=== PATIENT | female | born 1970 | race African-American/Black ===

== ENCOUNTER 2016-12-10 12:40 | Outpatient (CLI) | payer MEDICARE ==
[2016-12-10 13:29] LABS: Anion Gap 11 mmol/L (10-20); BUN (Urea Nitrogen) 12 mg/dL (7.0-18.7); Calc. Creatinine Clearance 0 mL/min (70-130); Calcium 9.5 mg/dL (7.8-10.44); Carbon Dioxide 28 mmol/L (22-29); Chloride 104 mmol/L (98-107); Estimated GFR-MDRD Greater than 90
--- NOTE | 2016-12-10 17:26 | RAD ---
IVP WITHOUT TOMOGRAMS: 12/10/16 HISTORY: Kidney stones. FINDINGS: The supplier diversity director film demonstrates no suspicious calcifications. There is fecal material in the colon. Foll owing the uncomplicated IV administration of contrast there is prompt bilaterally symmetric nephrogr ams with normal excretion into the pelvicalyceal systems, ureters and the urinary bladder. No hydrou reteronephrosis is seen. The distal right ureter is not visualized during the excretion phase. The u rinary bladder is grossly unremarkable. A large amount of postvoid residual was present on the postv oid film. IMPRESSION: 1. No evidence of high grade obstruction. 2. Large amount of postvoid residual in the urinary bladder. POS: [facility]
== END 2016-12-10 12:41 | disposition home or self-care (01) ==
LOC: RAD 12:40
PROVIDERS: ATTEND Urology
DX: N20.0 Calculus of kidney (principal); N32.89 Other specified disorders of bladder
CPT/HCPCS: 36415; 74410; 80048

== ENCOUNTER 2017-02-10 13:24 | Outpatient (CLI) | payer MEDICARE ==
--- NOTE | 2017-02-10 14:23 | RAD ---
KUB: History: Calculi. FINDINGS/IMPRESSION: Comparison is made with IVP of 12-10-16. No suspicious calcifications are seen. The calcific density in the left hemiabdomen at L3-4 is again seen and is found to be separate from the left ureter on the IVP. Degenerative changes of the spine. POS: [facility]
== END 2017-02-10 13:25 | disposition home or self-care (01) ==
LOC: RAD 13:24
PROVIDERS: ATTEND Urology
DX: N20.0 Calculus of kidney (principal); M47.9 Spondylosis, unspecified
CPT/HCPCS: 74000

== ENCOUNTER 2017-02-25 07:56 | Outpatient (CLI) | payer MEDICARE ==
--- NOTE | 2017-02-25 10:16 | ULT ---
BILATERAL RENAL ULTRASOUND: Date: 02/25/17 PROVIDED CLINICAL HISTORY: Ureteral calculi. FINDINGS: Right kidney measures about 10.0 x 4.3 x 4.0 cm and demonstrates no evidence for hydronephrosis, sono graphically apparent calculus, or mass. Left kidney measures about 9.2 x 4.2 x 4.0 cm and demonstrates no evidence for hydronephrosis, sonogr aphically apparent calculus, or mass. The urinary bladder appears sonographically unremarkable. There is negligible post-void residual. IMPRESSION: No evidence for hydronephrosis. POS: [facility]
--- NOTE | 2017-02-25 10:26 | RAD ---
KUB: Date: 02-25-17 Provided Clinical History: Ureteral calculi. FINDINGS: The abdominal bowel gas pattern is nonspecific. Calcifications overlying the pelvis are stable and li olman vascular in nature. No definite radiographically apparent urinary tract calculi. IMPRESSION: As above. POS: [facility]
== END 2017-02-25 07:57 | disposition home or self-care (01) ==
LOC: ULT 07:56
PROVIDERS: ATTEND Urology
DX: N20.1 Calculus of ureter (principal)
CPT/HCPCS: 36415; 74018; 76770; 80048; 81001; 87086

== ENCOUNTER 2019-10-12 07:41 | Outpatient (CLI) | payer MEDICARE, OTHER ==
[2019-10-12 15:01] LABS: #Basophils 0.2 thou/uL (0.0-0.2); #Eosinphils 0.2 thou/uL (0.0-0.7); #Lymphocytes 3.7 thou/uL (1.20-3.40); #Monocytes 0.6 thou/uL (0.11-0.59); #Neutrophils 4.5 thou/uL (1.40-6.50); %Basophils 1.7 % (0.0-1.0); %Eosinophils 1.9 % (0.0-10.0); %Lymphocytes 40.9 % (21.0-51.0); %Monocytes 6.3 % (0.0-10.0); %Neutrophils 49.2 % (42.0-75.0); MDiff Complete? YES; Macrocytosis SLIGHT = 6-15 cells (100X) (0-5/hpf); Mean Corpuscular HGB CONC 32.8 g/dL (32.0-36.0); Mean Corpuscular Hemoglobin 35.3 pg (27.0-31.0); Mean Platelet Volume 9.1 fL (7.4-10.4); Platelet Count 361 thou/uL (130-400); Platelet Morphology Comment Appears Adequate; Polychromasia SLIGHT = 2-3 cells (100X) (0-2/hpf); RBC Distribution Width 14.2 % (11.5-14.5); Red Blood Cell (RBC) Count 4.25 mill/uL (4.20-5.40); Target Cells SLIGHT = 2-5 cells (100X) (0-1/hpf); White Blood Cell (WBC) Count 9.1 thou/uL (4.8-10.8)
[2019-10-13 13:42] LABS: SARS-CoV-2 MS2 Positive; SARS-CoV-2 N Gene Negative; SARS-CoV-2 S Gene Negative; SARS-CoV-2 by NAA Not Detected (NotDetected); SARS-CoV-2 orf1ab Negative
== END 2019-10-12 07:42 | disposition home or self-care (01) ==
LOC: LABBT 07:41
PROVIDERS: ATTEND Orthopaedic Surgery Hand Surgery
DX: Z01.812 Encounter for preprocedural laboratory examination (principal); Z20.828 Contact with and (suspected) exposure to other viral communicable diseases; S52.502A Unspecified fracture of the lower end of left radius, initial encounter for closed fracture; S63.8X2A Sprain of other part of left wrist and hand, initial encounter
CPT/HCPCS: 85025; U0003; 87635

== ENCOUNTER 2019-10-16 12:01 | Observation (INO) | payer MEDICARE ==
[2019-10-12 09:13] VITALS: BMI 41.6
[~2019-10-16 12:01] MED LIST: Bupivacaine HCl 0.5%/Epinephrine 1:200,000/PF 30 ml Vial ONE; Lidocaine 1% PF 5 ML VIAL ONE; Ondansetron PF 4 MG/2 ML Vial ONE; PROPOFOL 200 MG/20 ML VIAL ONE
[2019-10-16] MEDS ORDERED: Fentanyl 100 MCG/2 ML VIAL ONE ×2 (14:16→15:38)
[2019-10-16] MEDS ORDERED: Midazolam HCl 2 mg/2 ml Vial ONE (14:16)
[2019-10-16] MEDS ORDERED: Bupivacaine PF 0.5% 30 ML VIAL ONE (15:47)
[2019-10-16] MEDS ORDERED: Bacitracin Zinc Ointment 30 gm TUBE ONE (15:47)
[2019-10-16] MEDS ORDERED: Betamet Acet/Betamet Na Ph 30 MG/5 ML VIAL ONE (15:47)
[2019-10-16] MEDS ORDERED: PROPOFOL 20 ML ONE (16:25)
--- NOTE | 2019-10-16 20:07 | RAD ---
INTRAOPERATIVE FLUOROSCOPY: History: Left wrist ORIF FINDINGS: Intraoperative fluoroscopic views demonstrate internal fixation of the distal radius, proximal carpal row. IMPRESSION: Intraoperative fluoroscopy as above. POS: [facility]
[2019-10-16] MEDS ORDERED: Promethazine HCl 25 MG/ML VIAL IM PRN (21:24)
[2019-10-16] MEDS ORDERED: Morphine 4 MG/ML VIAL SLOW IVP PRN (21:24)
[2019-10-16] MEDS ORDERED: Ondansetron PF 4 MG/2 ML Vial IVP PRN (21:24)
[2019-10-16] MEDS ORDERED: Acetaminophen 325 MG TAB PO PRN (21:24)
[2019-10-16] MEDS ORDERED: traMADol HCl 50 MG TAB PO PRN (21:24)
[2019-10-16] MEDS ORDERED: Meperidine HCl/PF 25 MG/ML VIAL IM PRN (21:31)
[2019-10-16] MEDS ORDERED: TETANUS AND DIPHTHERIA TOX/PF 0.5 ML DISP.SYRIN IM SCH (22:00)
[2019-10-16] MEDS: HYDROcodone/Acetaminophen 5/325 mg Tablet PO PRN (23:01)
[2019-10-17] MEDS: Ketorolac Tromethamine 30 MG/ML VIAL IVP SCH ×3 (00:18→11:55)
[2019-10-17] MEDS: Sodium Chloride 0.9% 1,000 ML IV SCH ×2 (00:19→10:24)
[2019-10-17] MEDS: Vancomycin HCl 1.75 GM in Sodium Chloride 0.9% 500 ML IVPB SCH ×2 (03:03→14:39)
[2019-10-17] MEDS: HYDROcodone/Acetaminophen 5/325 mg Tablet PO PRN ×2 (03:53→08:30)
--- NOTE | 2019-10-17 08:11 | OP ---
DATE OF PROCEDURE: 10/16/2019 PREOPERATIVE DIAGNOSES: 1. Left distal radius fracture, primarily 3 part styloid fracture. 2. Volar scapholunate ligament separation with intact central membranous and dorsal scapholunate. FINDINGS: A 3-point styloid fracture with a dorsal avulsion fracture, small volar avulsion fracture in the central 2/3 which was widely separate almost 4.5 mm at the articular surface with malrotation. PROCEDURES PERFORMED: 1. Open reduction and internal fixation distal radius fracture, left, 3 part styloid. 2. Partial volar scapholunate interosseous membrane tear pinning scaphoid to lunate, open, via arthrotomy. TOURNIQUET TIME: 120 minutes at 250 mmHg. ANESTHESIA: Block 24 hour with general endotracheal technique. ESTIMATED BLOOD LOSS: 20 mL. DESCRIPTION OF PROCEDURE: After successful general endotracheal anesthesia, the limb was prepped and draped. Initially, we prepped and draped the area, brought the C-arm to the field and attempted closed reduction with pinning only, this failed. We then tried a limited open reduction and internal fixation, primarily entering the first dorsal compartment, visualizing the superficial radial nerve branch, protected it and entering the space between the extensor pollicis brevis and abductor pollicis longus to place multiple K-wires and then after performing a reduction and placing one screw noticed that we did not reduce the displacement from 4 mm to anatomical, so we then removed this screw, removed the K-wires and began arthrotomy. Arthrotomy was made centered over Maureen's tubercle and this time was slightly more ulnar to space between the first dorsal compartment incision and this incision. This was carried through skin and subcutaneous tissue and immediately we found the extensor pollicis longus, and then spared it into the interval between the third and fourth dorsal compartments opening both. Then, we visualized the wrist joint with self-retaining retractors and then made a box shaped cut down to the scapholunate ligament. We first visualized the scapholunate ligament and saw that it was not displaced, although the interval was approximately 3 mm wide. We then completely palmar flexed the wrist to 7 degrees and saw the entire central membranous portion and the dorsal scapholunate ligament was intact, so we did not have to do a repair. We decided instead to reduce this and then pin the joint. The pinning took place through the distal end of the first dorsal compartment the 2 extensor tendons from each other, placing the wire between them and then at the same time making the wire well away from the superficial radial nerve and its branches. We did this after, however, we performed an open reduction with initially a 3 K-wire fixation, 1 from palmar ridge to central, 1 from central to dorsal, and 1 from dorsal slightly palmar. Then we placed one in the very distal end of the fracture, the fracture propagated approximately 15 mm down the shaft. Once we had done this, and after visualizing the anatomic reduction, we took the large Synthes 399.98 clamp away and we still had excellent reduction so we then began to pass 4 screws, 3 juxtaarticular and 1 remaining longterm between the articular screws and the proximal end of the fracture fragments. Each was buried with none protruding into the distal radioulnar joint and all being just at or under the surface reflection. We had excellent apposition of all screws. We removed the wires and obtained radiographs and then visualized again and the fracture was still anatomic in intraarticular visualization. We released the tourniquet. We obtained hemostasis. We visualized superficial radial nerve and the branch was intact and then we closed the retinaculum with interrupted [id number] using 2-0 Vicryl. We closed the subcutaneous tissue at the first dorsal compartment with interrupted 4-0 Monocryl and the skin was reapproximated with 4-0 nylon in interrupted simple pattern. We closed the capsule using a running 3-0 Prolene without undue tightening with the dorsal capsule in 60 degrees of palmar flexion. Before we closed the first dorsal compartment area, we then cut the wire with just being barely palpable and well away from the superficial radial nerve branches. We then closed the retinaculum using a combination of interrupted 0 Vicryl undyed and a 2-0 Vicryl undyed. Subcutaneous closure was accomplished after we obtained hemostasis with a running 4-0 Monocryl and skin reapproximated with interrupted 4-0 nylon in a mattress pattern. The patient left the operating room without evidence of anesthetic or operative complication. Job ID: [id number]
[2019-10-17] MEDS ORDERED: Vancomycin 1 GM in Premix Bag 1 BAG IVPB SCH (09:00)
[2019-10-17] MEDS ORDERED: Aspirin 81 mg Enteric Coated Tablet PO SCH (09:00)
[2019-10-17 15:29] VITALS: BP 112/72; TEMP 98.3
== END 2019-10-17 15:00 | disposition home or self-care (01) ==
LOC: SDC 12:01 → SJJU 21:32
PROVIDERS: ADMIT Orthopaedic Surgery Hand Surgery; ATTEND Orthopaedic Surgery Hand Surgery
PROC: 0PSJ04Z Reposition Left Radius with Internal Fixation Device, Open Approach (ICD-10-PCS; principal; 2019-10-16)
PROC: 3E0T3BZ Introduction of Anesthetic Agent into Peripheral Nerves and Plexi, Percutaneous Approach (ICD-10-PCS; 2019-10-16)
DX: S52.512A Displaced fracture of left radial styloid process, initial encounter for closed fracture (principal); S63.8X2A Sprain of other part of left wrist and hand, initial encounter; G89.18 Other acute postprocedural pain; I10 Essential (primary) hypertension; K59.09 Other constipation; F17.210 Nicotine dependence, cigarettes, uncomplicated; Z79.899 Other long term (current) drug therapy; Z88.6 Allergy status to analgesic agent; W01.10XA Fall on same level from slipping, tripping and stumbling with subsequent striking against unspecified object, initial encounter; Y93.01 Activity, walking, marching and hiking; Y92.481 Parking lot as the place of occurrence of the external cause
CPT/HCPCS: 25320; 25609; 64415; 73100; 76000; 93005; 96361; 96365; 96366; 96372; 96375; 96376; C1713 ×3; G0378 ×2; 93010; J0670; J0690; J0702; J1885; J2175; J2250; J2270; J2405; J2704; J3010; J3370; J3490; J7030; S0020

== ENCOUNTER 2019-11-23 07:51 | Outpatient (CLI) | payer MEDICARE, OTHER ==
[2019-11-23 15:05] LABS: Mean Corpuscular Hemoglobin 36.1 pg (27.0-31.0); Mean Platelet Volume 9.2 fL (7.4-10.4); Platelet Count 371 thou/uL (130-400); RBC Distribution Width 15.1 % (11.5-14.5); Red Blood Cell (RBC) Count 4.15 mill/uL (4.20-5.40); White Blood Cell (WBC) Count 9.3 thou/uL (4.8-10.8)
[2019-11-24 12:27] LABS: SARS-CoV-2 MS2 Positive; SARS-CoV-2 N Gene Negative; SARS-CoV-2 S Gene Negative; SARS-CoV-2 by NAA Not Detected (NotDetected); SARS-CoV-2 orf1ab Negative
== END 2019-11-23 07:52 | disposition home or self-care (01) ==
LOC: LABBT 07:51
PROVIDERS: ATTEND Orthopaedic Surgery Hand Surgery
DX: Z01.812 Encounter for preprocedural laboratory examination (principal); T84.84XD Pain due to internal orthopedic prosthetic devices, implants and grafts, subsequent encounter; Z20.828 Contact with and (suspected) exposure to other viral communicable diseases
CPT/HCPCS: 85027; U0003; 87635

== ENCOUNTER → 2019-11-27 | Day surgery (SDC) | payer MEDICARE ==
[~2019-11-27] MED LIST changes: +Bacitracin Zinc Ointment 30 gm TUBE ONE; -Bupivacaine HCl 0.5%/Epinephrine 1:200,000/PF 30 ml Vial ONE; +Bupivacaine PF 0.5% 30 ML VIAL ONE; +Dexamethasone 20 MG/5 ML VIAL ONE; +Esmolol 100 MG/10 ML VIAL ONE; +Fentanyl 100 MCG/2 ML VIAL ONE; +HYDROcodone/Acetaminophen 5/325 mg Tablet ONE; +Labetalol HCl 100 MG/20 ML VIAL ONE; +Midazolam HCl 2 mg/2 ml Vial ONE; +PHENYLEPHRINE-NS 100 MCG/ML 10 ML SYRINGE ONE
--- NOTE | 2019-11-27 15:41 | RAD ---
LEFT WRIST: 3 fluoroscopic views are presented from the OR. INDICATION: Intraoperative imaging during hardware removal procedure. FINDINGS/IMPRESSION: Initial image shows screws in the distal radius and pin within the carpals. The pin has been removed on the subsequent imaging. Screws within the radius remain unchanged. POS: [facility]
--- NOTE | 2019-11-27 19:50 | OP ---
DATE OF PROCEDURE: 11/27/2019 PREOPERATIVE DIAGNOSIS: Left wrist pain from deep wire. POSTOPERATIVE DIAGNOSIS: Left wrist pain from deep wire. PROCEDURE PERFORMED: 1. Removal of deep wire. 2. C-arm supervision. FINDINGS: Stable scapholunate joint with only 2 mm gap at the midcarpal space, after wire was removed and at the distal radius styloid fracture appears to be nearly healed without displacement. DESCRIPTION OF PROCEDURE: After successful general endotracheal anesthesia, limb was prepped and draped. The patient had the C-arm brought to the field, identified the wires in both the frontal sagittal plane and then made an incision slightly palmar to the midline over where the wire should be. We had to dissect around the venous and neurological structures in order to find the wire. Once we did, we placed a large and slowly twist and turned to remove. It was removed. C-arm confirmed excellent position of the fracture and the scapholunate interval after the wire was removed. We then obtained hemostasis, closed the incision with interrupted chromic gut suture x2 in a [id number] pattern and the patient left the operating room without evidence of anesthetic or operative complications after wound closure with chromic and an injection of 10 mL of 0.5% Marcaine in the incision. Job ID: [id number]
== END ==
LOC: SDC 12:00
PROVIDERS: ATTEND Orthopaedic Surgery Hand Surgery
PROC: 0RPP04Z Removal of Internal Fixation Device from Left Wrist Joint, Open Approach (ICD-10-PCS; principal; 2019-11-27)
DX: T84.84XA Pain due to internal orthopedic prosthetic devices, implants and grafts, initial encounter (principal); I10 Essential (primary) hypertension; K59.09 Other constipation; F17.210 Nicotine dependence, cigarettes, uncomplicated; Z79.899 Other long term (current) drug therapy; Z88.6 Allergy status to analgesic agent
CPT/HCPCS: 76000; J0690; J1100; J2250; J2405; J2704; J3010; J3490; S0020